=== PATIENT | female | born 1980 | race Caucasian/White ===

== ENCOUNTER 2022-04-22 21:24 | Emergency (ER) | payer OTHER, SELFPAY ==
[2022-04-22] MEDS ORDERED: Ketorolac Tromethamine 60 MG/2 ML VIAL ONE (22:07)
== END 2022-04-22 22:35 | disposition home or self-care (01) ==
LOC: MADERS 21:24
DX: M79.604 Pain in right leg (principal)
CPT/HCPCS: 96372; J1885

== ENCOUNTER 2022-06-27 12:30 | Emergency (ER) | payer OTHER ==
[2022-06-27] MEDS ORDERED: Amoxicillin/Potassium Clav 875 MG TAB ONE (13:04)
== END 2022-06-27 13:15 | disposition home or self-care (01) ==
LOC: MADERS 12:30
DX: S81.852A Open bite, left lower leg, initial encounter (principal); S81.851A Open bite, right lower leg, initial encounter; K21.9 Gastro-esophageal reflux disease without esophagitis; I10 Essential (primary) hypertension; E78.00 Pure hypercholesterolemia, unspecified; J45.909 Unspecified asthma, uncomplicated; W54.0XXA Bitten by dog, initial encounter; Z79.899 Other long term (current) drug therapy
CPT/HCPCS: 99283